=== PATIENT | female | born 1995 | race Caucasian/White ===

== ENCOUNTER 2018-07-11 02:23 | Observation (INO) | payer OTHER ==
[2018-07-11] MEDS ORDERED: KETOROLAC 15 MG/1 ML SDV IVP ONE (02:43)
[2018-07-11] MEDS ORDERED: HYDROmorphONE/DILAUDID 2 MG/ML INJ IVP ONE ×2 (03:20→05:28)
[2018-07-11] MEDS ORDERED: ONDANSETRON 4 MG/2 ML VIAL IVP ONE (03:20)
[2018-07-11] MEDS ORDERED: ONDANSETRON 4 MG/2 ML VIAL ONE ×2 (03:21→13:05)
[2018-07-11] MEDS ORDERED: HYDROmorphONE/DILAUDID 1 MG/ML INJ ONE ×2 (03:21→05:29)
[2018-07-11 03:57] LABS: PLATELET COUNT 205 10^3/uL (150-400)
--- NOTE | 2018-07-11 04:21 | EDPHY ---
H & P Stated Complaint: RLQ pain diagnosed with ovarian cyst today Time Seen by Provider: 07/11/18 03:26 HPI/ROS: HPI The patient presents with right lower quadrant abdominal pain which has been present since about 4:00 p.m. After having intercourse. The patient has had intermittent right lower quadrant abdominal pain over the last several months. She saw her PMD 2 days ago and had an ultrasound yesterday which did demonstrate a right-sided ovarian cyst measuring up to 7.7 cm. The pain today started suddenly, is severe, is not improved with his several doses of ibuprofen which she took at home and usually helps the pain. She has nausea without vomiting. She has not had any vaginal bleeding or discharge . REVIEW OF SYSTEMS 10 systems were reviewed and negative with the exception of the elements mentioned in the history of present illness. 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 PHYSICAL General Appearance: Alert, no distress Eyes: Pupils equal and round no pallor or injection ENT, Mouth: Mucous membranes moist Respiratory: There are no retractions, lungs are clear to auscultation Cardiovascular: Regular rate and rhythm Gastrointestinal: Abdomen is soft and tender in the right lower quadrant with voluntary guarding Neurological: A&O, moves all extremities Skin: Warm and dry, no rashes Musculoskeletal: Neck is supple non tender Extremities: symmetrical, full range of motion Psychiatric: Patient is oriented X 3, there is no agitation Source: Patient Exam Limitations: No limitations - Personal History LMP (Females 10-55): IUD In Place Current Tetanus Diphtheria and Acellular Pertussis (TDAP): Yes Tetanus Vaccine Date: unknown - Medical/Surgical History Hx Asthma: No Hx Chronic Respiratory Disease: No Hx Diabetes: No Hx Cardiac Disease: No Hx Renal Disease: No Hx Cirrhosis: No Hx Alcoholism: No Hx HIV/AIDS: No Hx Splenectomy or Spleen Trauma: No Other PMH: anxiety - Social History Smoking Status: Never smoked Constitutional: Initial Vital Signs Temperature (C) 36.6 C 07/11/18 02:29 Heart Rate 73 07/11/18 02:29 Respiratory Rate 16 07/11/18 02:29 Blood Pressure 123/73 H 07/11/18 02:29 O2 Sat (%) 98 07/11/18 02:29 O2 Delivery Mode Room Air Allergies/Adverse Reactions: peanut Allergy (Verified 07/11/18 02:29) Home Medications: Medication Instructions Recorded Fish Oil 02/06/14 Acyclovir 07/11/18 Hydroxyzine HCl 07/11/18 MIRENA 07/11/18 oxyCODONE IR [Oxycodone Ir (*)] 5 - 10 mg PO Q4HRS PRN #25 tab 07/11/18 Medical Decision Making - Diagnostics Imaging Results: Ultrasound pelvis demonstrates likely ruptured right-sided ovarian cyst with hemoperitoneum, discussed with Dr. Babb of Radiology. Differential Diagnosis: 23-year-old female with known right-sided ovarian cyst diagnosed just yesterday measuring up to 7.7 cm now presents with worsening of right lower quadrant pain. On exam, she is quite tender. Differential diagnosis includes ruptured ovarian cyst, ovarian torsion. Plan for repeat ultrasound here and pain medication. The patient received IV fluids and Toradol though had ongoing pain, thus she received Dilaudid with improvement in her symptoms. Pelvic ultrasound did demonstrate ruptured right ovarian cyst with no evidence of ovarian torsion. She has significant hemoperitoneum associated with this. Her vital signs have remained stable. Her hemoglobin is 10.7 on arrival, however I do not have a baseline. The patient states that she has no prior history of anemia. The patient was observed for several hours in the emergency department. She required a 2nd dose of Dilaudid for her pain. Upon standing she felt woozy, dizzy, with increased pain. On repeat abdominal exam she does have moderate tenderness in all quadrants. Because of this I consulted with the OBGYN fish conservationist Dr. Ovalle. We decided to admit the patient for observation and possible operation. I have discussed this with the patient and her mother. They are happy with this plan. I did send a type and screen for the patient. - Data Points Laboratory Results: Laboratory Results 07/11/18 02:40 Medications Given: Discontinued Medications Acetaminophen (Tylenol) 1,000 mg PO Q8H [facility] Stop: 01/07/19 17:14 Last Admin: 07/11/18 17:18 Dose: 1,000 mg Bupivacaine HCl/Epinephrine Bitart (Bupivacaine/Epi) Confirm Administered Dose 30 ml .ROUTE .STDish.fm-MED ONE Stop: 07/11/18 11:08 Last Admin: 07/11/18 14:30 Dose: 10 ml Fentanyl (Sublimaze) 25 - 100 mcg IVP Q5M PRN PRN Reason: PACU, IMMEDIATE Pain control Stop: 07/11/18 15:32 Last Admin: 07/11/18 15:31 Dose: 50 mcg Fibrinogen/Thrombin (Surgiflo Matrix Kit With Thrombin) Confirm Administered Dose 8 ml TP .STK-MED ONE Stop: 07/11/18 14:17 Last Admin: 07/11/18 14:15 Dose: 8 ml Hydromorphone HCl (Dilaudid) 0.5 mg IVP EDNOW ONE Stop: 07/11/18 03:21 Last Admin: 07/11/18 03:22 Dose: 0.5 mg Hydromorphone HCl (Dilaudid) 0.5 mg IVP EDNOW ONE Stop: 07/11/18 05:29 Last Admin: 07/11/18 05:32 Dose: 0.5 mg Hydromorphone HCl (Dilaudid) 0.5 mg IVP EDNOW ONE Stop: 07/11/18 05:58 Last Admin: 07/11/18 06:00 Dose: 0.5 mg Hydromorphone HCl (Dilaudid) 0.5 mg IVP Q4H PRN PRN Reason: Pain, Severe Unable to Take PO Stop: 07/21/18 06:34 Last Admin: 07/11/18 08:22 Dose: 0.5 mg Sodium Chloride (Ns) 1,000 mls @ 0 mls/hr IV EDNOW ONE; Wide Open PRN Reason: Protocol Stop: 07/11/18 05:05 Last Admin: 07/11/18 05:08 Dose: 1,000 mls Lactated Ringer's (Lr) 1,000 mls @ 125 mls/hr IV .CONT NKECHI Stop: 01/07/19 06:59 Last Admin: 07/11/18 07:24 Dose: 1,000 mls Ketorolac Tromethamine (Toradol) 15 mg IVP EDNOW ONE Stop: 07/11/18 02:44 Last Admin: 07/11/18 02:54 Dose: 15 mg Midazolam HCl (Versed) 2 mg IVP ONCALL ONE Stop: 07/11/18 12:45 Last Admin: 07/11/18 13:09 Dose: 2 mg Ondansetron HCl (Zofran) 4 mg IVP EDNOW ONE Stop: 07/11/18 03:21 Last Admin: 07/11/18 03:22 Dose: 4 mg Silver Nitrate/Potassium Nitrate (Silver Nitrate Applicator) Confirm Administered Dose 10 each TP .STK-MED ONE Stop: 07/11/18 11:08 Last Admin: 07/11/18 14:56 Dose: Not Given Departure - Departure Disposition: [facility] Acute Condition: Good
[2018-07-11] MEDS ORDERED: cefTRIAXone 1 GM/DEXTROSE 1 GM/50 ML BAG IV ONE (04:33)
[2018-07-11] MEDS ORDERED: NS 1,000 ML IV ONE (05:04)
[2018-07-11] MEDS ORDERED: HYDROmorphONE/DILAUDID 1 MG/ML INJ IVP ONE (05:57)
[2018-07-11] MEDS ORDERED: ONDANSETRON 4 MG/2 ML VIAL IVP PRN ×2 (06:34→14:28)
[2018-07-11] MEDS ORDERED: HYDROmorphONE/DILAUDID 2 MG/ML INJ IVP PRN ×3 (06:35→08:30)
[2018-07-11] MEDS ORDERED: LR 1,000 ML IV SCH (07:00)
--- NOTE | 2018-07-11 10:36 | PDGENHP ---
History and Physical - Chief Complaint RLQ pain, acute - History of Present Illness Ariadna is a very pleasant 23 yo nulliparous female who presented to the ER early this AM with the acute onset of RLQ abdominal and pelvic pain that began last night a few hours after intercourse. She has no history of ovarian cysts in the past, does have a Mirena IUD in place (incidentally noted that her docs have been unable to remove her IUD in the office due to short/non-visible strings) that is due to be removed in 1.5 years. She has had nagging intermittent RLQ pain that was different in character for the past few weeks over holiday break from [facility]. Had a pelvic US via her PCP 2 days ago that apparently showed a 8cm ovarian cyst on the right - the patient hadn't heard any follow-up from her PCP leading up to last night regarding a plan for the cyst. 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 Reports feeling light-headed and still a little weak/nauseous this AM although better with meds. 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 Happy with her IUD otherwise - which does appear to be in good position on her US today. History Information - Allergies/Home Medication List Allergies/Adverse Reactions: peanut Allergy (Verified 07/11/18 02:29) Home Medications: Fish Oil 02/06/14 [Last Taken Unknown] Acyclovir 07/11/18 [Last Taken Unknown] Hydroxyzine HCl 07/11/18 [Last Taken Unknown] MIRENA 07/11/18 [Last Taken Unknown] I have personally reviewed and updated: family history, medical history, social history, surgical history Past Medical History: HSV1, Anxiety, h/o MRSA infection - Surgical History Additional surgical history: [place] teeth - Family History Positive for: non-pertinent - Social History Smoking Status: Never smoked Alcohol Use: Rarely Review of Systems Review of Systems: ROS: 10pt was reviewed & negative except for what was stated in HPI & below Physical Exam Physical Exam: Temp Pulse Resp BP Pulse Ox 36.4 C 74 15 97/55 L 96 07/11/18 08:00 07/11/18 08:00 07/11/18 08:00 07/11/18 08:00 07/11/18 08:00 Constitutional: no apparent distress, not in pain, other (pale) Eyes: PERRL, anicteric sclera, EOMI Ears, Nose, Mouth, Throat: moist mucous membranes Gastrointestinal: soft, non-tender abdomen, no palpable masses, guarding, distension (minimal), No pena's sign, No rebound Skin: warm, normal color Musculoskeletal: full muscle strength Lab Data & Imaging Review 07/11/18 02:40 WBC 10.74 10^3/uL (3.80-9.50) H 07/11/18 02:40 RBC 3.44 10^6/uL (4.18-5.33) L 07/11/18 02:40 Hgb 10.7 g/dL (12.6-16.3) L 07/11/18 02:40 Hct 31.3 % (38.0-47.0) L 07/11/18 02:40 MCV 91.0 fL (81.5-99.8) 07/11/18 02:40 MCH 31.1 pg (27.9-34.1) 07/11/18 02:40 MCHC 34.2 g/dL (32.4-36.7) 07/11/18 02:40 RDW 12.5 % (11.5-15.2) 07/11/18 02:40 Plt Count 205 10^3/uL (150-400) 07/11/18 02:40 MPV 10.2 fL (8.7-11.7) 07/11/18 02:40 Neut % (Auto) 59.1 % (39.3-74.2) 07/11/18 02:40 Lymph % (Auto) 34.1 % (15.0-45.0) 07/11/18 02:40 [place] % (Auto) 5.4 % (4.5-13.0) 07/11/18 02:40 Eos % (Auto) 0.6 % (0.6-7.6) 07/11/18 02:40 Baso % (Auto) 0.5 % (0.3-1.7) 07/11/18 02:40 Nucleat RBC Rel Count 0.0 % (0.0-0.2) 07/11/18 02:40 Absolute Neuts (auto) 6.36 10^3/uL (1.70-6.50) 07/11/18 02:40 Absolute Lymphs (auto) 3.66 10^3/uL (1.00-3.00) H 07/11/18 02:40 Absolute Monos (auto) 0.58 10^3/uL (0.30-0.80) 07/11/18 02:40 Absolute Eos (auto) 0.06 10^3/uL (0.03-0.40) 07/11/18 02:40 Absolute Basos (auto) 0.05 10^3/uL (0.02-0.10) 07/11/18 02:40 Absolute Nucleated RBC 0.00 10^3/uL (0-0.01) 07/11/18 02:40 Immature Gran % 0.3 % (0.0-1.1) 07/11/18 02:40 Immature Gran # 0.03 10^3/uL (0.00-0.10) 07/11/18 02:40 Patient ABO/Rh A POSITIVE 07/11/18 05:38 Antibody Screen NEGATIVE 07/11/18 05:38 Assessment & Plan Assessment: I had a long discussion with Ariadna and her mom today regarding her presentation, her US, and options for treatment. I offered that this looks like a simple or moderately complex large ovarian cyst that ruptured. On US there is indeed a moderate amount of fluid in the belly, but some of this is simple, with a focus of complex fluid and likely blood in the pelvis associated with this irregular/ruptured cyst. She is hemodynamically stable, but has symptoms of anemia and pretty significant abdominal pain. I offered two options: Diagnostic laparoscopy where we can remove that fluid, address the cyst, and make sure there's no ongoing bleeding with that ovary. The other option would be no immediately intervention, observation in the hospital for the next little bit, with repeat blood-work to eval for ongoing bleeding. I counseled her that I think both these options are reasonable, certainly nice to avoid risks of surgery - but she is concerned with the amount of time it will take for her to feel better with that blood naturally resorbing. She also needs to fly back to [place] this weekend for classes and wants as fast a recovery as possible. She and her mother ultimately decided that OR is what they'd prefer. They are considering whether of not they'd also like me to remove her IUD while we're there and she's under sedation. - Routine preop orders, no abx needed/indicated. - Urine HCG in preop. - Type & Screen STAT now. JM
[2018-07-11] MEDS ORDERED: BUPIVACAINE/EPI 0.25% 30 ML SDV ONE (11:07)
[2018-07-11] MEDS ORDERED: SILVER NITRATE APPLICATOR 1 APPL TP ONE (11:07)
[2018-07-11] MEDS ORDERED: MIDAZOLAM 2 MG/2 ML VIAL IVP ONE (12:44)
--- NOTE | 2018-07-11 12:48 | PDANEPAE ---
ANE Past Medical History - Pulmonary History Hx Oxygen in Use at Home: No Hx Sleep Apnea: No Sleep Apnea Screening Result - Last Documented: Negative - Endocrine History Hx Diabetes: No Obesity: no ANE Review of Systems Review of Systems: ANE Patient History - Allergies Allergies/Adverse Reactions: peanut Allergy (Verified 07/11/18 02:29) - Home Medications Home medications: home medication list seen and reviewed Home Medications: Fish Oil 02/06/14 [Last Taken Unknown] Acyclovir 07/11/18 [Last Taken Unknown] Hydroxyzine HCl 07/11/18 [Last Taken Unknown] MIRENA 07/11/18 [Last Taken Unknown] - NPO status NPO Status: no food or drink >8 hours NPO Since - Liquids (Date): 07/11/18 NPO Since - Liquids (Time): 00:00 NPO Since - Solids (Date): 07/10/18 NPO Since - Solids (Time): 20:00 - Anes Hx Anes Hx: no prior problems - Smoking Hx Smoking Status: Never smoked - Alcohol Use Alcohol Use: Rarely - Family Anes Hx Family Anes Hx: neg - N/A ANE Labs/Vital Signs - Labs Result Diagrams: 07/11/18 02:40 - Vital Signs Blood Pressure: 111/64 Heart Rate: 85 Respiratory Rate: 16 O2 Sat (%): 96 Height: 167.64 cm Weight: 65.771 kg ANE Physical Exam - Airway Neck exam: FROM Mallampati Score: Class 2 Mouth exam: normal dental/mouth exam - Pulmonary Pulmonary: no respiratory distress, no rales or rhonchi, clear to auscultation - Cardiovascular Cardiovascular: regular rate and rhythym, no murmur, rub, or gallop - ASA Status ASA Status: II ANE Anesthesia Plan Anesthesia Plan: general endotracheal anesthesia
[2018-07-11] MEDS ORDERED: PROPOFOL 200 MG/20 ML VIAL ONE (13:04)
[2018-07-11] MEDS ORDERED: fentaNYL 100 MCG/2 ML INJ ONE ×3 (13:04→15:29)
[2018-07-11] MEDS ORDERED: KETOROLAC 30 MG/1 ML SDV ONE (13:05)
[2018-07-11] MEDS ORDERED: DEXAMETHASONE 4 MG/ML VIAL ONE ×2 (13:05)
[2018-07-11] MEDS ORDERED: LIDOCAINE 2% 5 ML SDV ONE (13:05)
[2018-07-11] MEDS ORDERED: ROCURONIUM 50 MG/5 ML VIAL ONE (13:05)
[2018-07-11] MEDS ORDERED: SURGIFLO MATRIX KIT WITH THROMBIN 8 ML TP ONE (14:16)
[2018-07-11] MEDS ORDERED: LR 500 ML IV PRN (14:28)
[2018-07-11] MEDS ORDERED: ACETAMINOPHEN 500 MG TAB PO PRN (14:28)
[2018-07-11] MEDS ORDERED: HYDROCODONE/APAP 5/325 TAB PO PRN (14:28)
[2018-07-11] MEDS ORDERED: MEPERIDINE 25 MG/0.5 ML AMP IVP PRN (14:28)
[2018-07-11] MEDS ORDERED: NALOXONE HCL 0.4 MG/ML INJ IVP PRN (14:28)
[2018-07-11] MEDS ORDERED: fentaNYL 100 MCG/2 ML INJ IVP PRN (14:28)
[2018-07-11] MEDS ORDERED: PROMETHAZINE HCL 25 MG/ML INJ IVP PRN (14:28)
[2018-07-11] MEDS ORDERED: GLYCOPYRROLATE 0.2 MG/1 ML VIAL ONE (14:34)
[2018-07-11] MEDS ORDERED: NEOSTIGMINE METHYLSULFATE 5 MG/5 ML SYR ONE (14:34)
--- NOTE | 2018-07-11 14:47 | POSTOPPROG ---
Post Op Note Date of Operation: 07/11/18 Surgeon: Srikanth Dahl Sports Commentator: None Anesthesiologist: Marck Stewart Anesthesia: GET(General Endotracheal) Pre-op Diagnosis: RLQ/Abdominal pain, suspected ruptured ovarian cyst Post-op Diagnosis: Ruptured right hemorrhagic ovarian cyst, large hemoperitoneum Procedure: Diagnostic laparoscopy, evac of hemoperitoneum, cautery cyst, remove IUD Findings: Large hemoperitoneum, Collapsed right ovarian cyst, non-vis IUD strings Inf/Abcess present in the surg proc area at time of surgery?: No EBL: 1620cc hemoperitoneum, 25cc additional surgical Complications: None Specimen(s): Cyst wall fragments
--- NOTE | 2018-07-11 14:50 | SUROPNOTE ---
[facility] Operative Report - Surgery Date of Operation: 07/11/18 Surgeon: Srikanth Dahl Cereal Chemist: None Anesthesiologist: Marck Stewart Anesthesia: GET(General Endotracheal) Pre-op Diagnosis: RLQ/Abdominal pain, suspected ruptured ovarian cyst Post-op Diagnosis: Ruptured right hemorrhagic ovarian cyst, large hemoperitoneum Procedure: 1. Diagnostic laparoscopy 2. Evacuation of hemoperitoneum 3. Cauterization of right ovarian cyst 4. Removal of IUD Findings: Large hemoperitoneum (approximately 1600cc, Collapsed/ruptured right ovarian cyst, otherwise normal interabdominal anatomy. Vaginally - non-visible IUD strings. Inf/Abcess present in the surg proc area at time of surgery?: No EBL: 1620cc hemoperitoneum, 25cc additional surgical Complications: None Specimen(s): Cyst wall fragments Technique: The patient was brought to the operating room where she was ergonomically positioned in low lithotomy position in Harsh stirrups. General anesthesia was established without issue. The arms were tucked at the patients side with care to not generate any pressure points. She was prepped and draped in standard fashion after a time-out was performed. An acorn manipulator was placed on the cervix to assist with uterine manipulation. A yi catheter was placed under sterile conditions. Antibiotics were not indicated and thus were not given. A 5mm vertical incision was made in the base of the umbilicus after injection of local anesthetic. The anterior abdominal wall was lifted as the Veress needle was carefully inserted into the abdomen at a 45% angle from vertical. Intraabdominal placement was confirmed with hanging drop test and low initial insufflation pressures. Once the abdomen was adequately insufflated with CO2 gas the Veress was removed and a 5mm Optiview non-bladed trocar was introduced into the abdomen without complication under direct visualization with the camera within the trocar. Once inside a brief scan of the abdomen revealed no injuries upon entry and did note impressive hemoperitoneum with thin bloody fluid filling the pelvis, and tracking up around the liver and LUQ as well. At this point 1 additional 5mm ports was placed in the lower left quadrants after injection of local. Additional pictures were taken of intra-abdominal organs/structures as noted in findings. We began by suctioning out all that fluid and clot - 1620cc in total. At that point I was able to visualize a normal uterus, normal left tube and ovary and normal right tube. There was clearly a collapsed and bleeding right hemorrhagic cyst. I removed pieces of the cyst wall for path, but the collapsed cyst was not amenable to total cystectomy without causing more trauma to the ovary. Thus I used monopolar energy to cauterize the base/interior of the cyst thoroughly and then filled that cavity with FloSeal. To conclude the pelvis was copiously irrigated and complete hemostasis was noted , even with lower intraabdominal pressure. All trocars were removed, gas was allowed to escape the abdomen, and skin incisions closed with single subcuticular stitches of 4-0 monocryl and then covered with Dermabond. Finally I did go below, remove the [place] manipulator and had to use a laparoscopic [place] grasper to reach in to the cavity to retrieve the IUD. IUD removed intact but with extremely short strings. The pt was extubated uneventfully and taken to the PACU in stable condition. Lap, needle and instrument counts were announced as correct at the conclusion of the case. I was scrubbed and present for the entire procedure.
--- NOTE | 2018-07-11 14:53 | POSTANESTH ---
Post Anesthetic Evaluation Cardiovascular Status: Normal, Stable, Similar to Pre-Op Cond Respiratory Status: Normal, Stable, Similar to Pre-op Cond. Level of Consciousness/Mental Status: Can Participate in Eval, Mildly Sleepy, Arousable Pain Control: Adequate, Prn Tx Ordered Nausea/Vomiting Control: Adequate, Prn Tx Ordered Complications Possibly Related to Anesthesia: None Noted
[2018-07-11] MEDS ORDERED: ACETAMINOPHEN 500 MG TAB PO SCH (17:15)
[2018-07-11 19:03] VITALS: BP 111/64
--- NOTE | 2018-07-16 16:13 | PDDCSUM ---
Discharge Summary Discharge Summary: Admitting Diagnosis: 1. Acute abdominal pain 2. Hemoperitoneum 3. Acute blood loss anemia Discharge Diagnosis: 1. Same 2. S/p diagnostic laparoscopy, evacuation of hemoperitoneum, cauterization of ruptured/bleeding ovarian cyst, removal of IUD Procedures: 1.Diagnostic laparoscopy, evacuation of hemoperitoneum, cauterization of ruptured/bleeding ovarian cyst, removal of IUD. Hospital Course: Alejandrina was admitted from the ER and brought to the CHILDREN COUNSELOR floor for further pain control and observation. I met with her and her mother and discussed options of observation vs laparoscopy. They desired surgery and later that day underwent uncomplicated DxLS with evacuation of nearly 1600cc of simple bloody fluid and blood clots (she had a known 8cm ovarian cyst that was diagnosed days earlier but no plan had been made for treatment yet at the time the cyst ruptured and she came in). A bleeding right ovarian cyst was also then addressed and the case was concluded. She was observed for a short time post- operatively and then discharged home. She had plans to fly back to school in [place] within the next week and we made a plan that that would be okay if she felt comfortable from a pain perspective and if she would be able to establish with a [facility]ILDREN COUNSELOR doc at [facility] soon after arriving for post-op follow-up - and decision about future control. Consultations: None Condition: Excellent Disposition: Home w/ family support New Discharge Medications: Oxycodone PRN for breakthrough pain. Continue scheduled ibuprofen and Tylenol per discharge instructions. Continue bowel regimen PRN per discharge instructions. Discharge Instructions: See discharge instruction sheet. Pending Studies: None Follow-up: 2 wks w/ local provider
== END 2018-07-11 18:30 | disposition home or self-care (01) ==
LOC: FOB 06:18
PROVIDERS: ADMIT Obstetrics & Gynecology; ATTEND Obstetrics & Gynecology
PROC: 0U504ZZ Destruction of Right Ovary, Percutaneous Endoscopic Approach (ICD-10-PCS; principal; 2018-07-11 13:30)
PROC: 0UPD4HZ Removal of Contraceptive Device from Uterus and Cervix, Percutaneous Endoscopic Approach (ICD-10-PCS; principal; 2018-07-11 13:30)
PROC: 0D9W4ZZ Drainage of Peritoneum, Percutaneous Endoscopic Approach (ICD-10-PCS; principal; 2018-07-11 13:30)
DX: N83.291 Other ovarian cyst, right side (principal); K66.1 Hemoperitoneum; E86.0 Dehydration
CPT/HCPCS: 58662; 76856; 96361; 96374; 96375; 96376; 99285; G0378; J0696; J1100; J1170; J1885; J2250; J2405; J2704; J2710; J3010